=== PATIENT | female | born 1995 | race Hispanic/Latino ===

== ENCOUNTER 2016-11-03 14:20 | Emergency (ER) | payer MEDICAID ==
[2016-11-03 14:39] VITALS: BP 109/68; PULSE 65; RESP 17; TEMP 97.7; O2SAT 98
--- NOTE | 2016-11-03 15:45 | ED PDOC ---
HPI: Headache Time Seen by Provider: 11/03/16 14:54 Chief Complaint (Nursing): Headache Chief Complaint (Provider): Headache History Per: Patient History/Exam Limitations: no limitations Onset/Duration Of Symptoms: Days (x7) Current Symptoms Are (Timing): Still Present Additional Complaint(s): Adore Ball is a 21 year old female that presents to the ED with a chief complaint of headaches and generalized weakness that she has been experiencing for the past week. Patient states that when she moves, she feels as though there is more pressure on her headache in the front. Past Medical History Reviewed: Historical Data, Nursing Documentation, Vital Signs Vital Signs: Last Vital Signs Temp 97.7 F 11/03/16 14:34 Pulse 65 11/03/16 14:34 Resp 17 11/03/16 14:34 BP 109/68 11/03/16 14:34 Pulse Ox 98 11/03/16 14:34 - Family History Family History: States: Unknown Family Hx - Home Medications Home Medications: Ambulatory Orders Medication Instructions Recorded Guaifenesin [Mucinex] 600 mg PO BID PRN #10 tab.er.12h 02/03/16 Levofloxacin [Levaquin] 750 mg PO DAILY #10 tablet 02/03/16 Naproxen [Naprosyn] 500 mg PO BID PRN #14 tablet 02/03/16 oxyCODONE/Acetaminophen [Percocet 1 tab PO Q4 PRN #10 tab 02/03/16 5/325 mg Tab] Amoxicillin/Clavulanate [Augmentin 1 tab PO BID #20 tab 11/03/16 875 MG-125 MG] Guaifen/Phenyleph/Acetaminophn 1 tab PO BID #14 tab 11/03/16 [Mucinex Fast-Max Cold & Sinus 325 mg-200 mg-5] - Allergies Allergies/Adverse Reactions: Allergies Allergy/AdvReac Type Severity Reaction Status Date / Time No Known Allergies Allergy Verified 02/03/16 11:45 Review of Systems Constitutional: Positive for: Weakness (generalized) Neurological: Positive for: Headache Physical Exam - Reviewed Nursing Documentation Reviewed: Yes Vital Signs Reviewed: Yes - Physical Exam Appears: Positive for: Non-toxic, No Acute Distress Head Exam: Positive for: ATRAUMATIC, NORMOCEPHALIC Skin: Positive for: Normal Color, Warm ENT: Positive for: Other (mild tenderness with percussion of frontal sinuses) Cardiovascular/Chest: Positive for: Regular Rate, Rhythm. Negative for: Murmur Respiratory: Positive for: Normal Breath Sounds. Negative for: Wheezing Neurologic/Psych: Positive for: Alert, Oriented. Negative for: Motor/Sensory Deficits - ECG O2 Sat by Pulse Oximetry: 98 (RA) Pulse Ox Interpretation: Normal Medical Decision Making Medical Decision Making: Impression: Possible Sinus Infection Plan: * CT Head w/o contrast No acute intracranial abnormalities Scribe Attestation: Documented by Ladan Lopez, acting as a scribe for Marcy Levine PA-C. Provider Scribe Attestation: All medical record entries made by the Scribe were at my direction and personally dictated by me. I have reviewed the chart and agree that the record accurately reflects my personal performance of the history, physical exam, medical decision making, and the department course for this patient. I have also personally directed, reviewed, and agree with the discharge instructions and disposition. Disposition - Clinical Impression Clinical Impression: Sinus headache - Patient ED Disposition Is Patient to be Admitted: No Counseled Patient/Family Regarding: Diagnosis, Need For Followup, Rx Given - Disposition Referrals: [facility] [Outside] [facility] [Outside] Disposition: Routine/Home Disposition Time: 16:52 Condition: GOOD Prescriptions: Amoxicillin/Clavulanate [Augmentin 875 MG-125 MG] 1 tab PO BID #20 tab Guaifen/Phenyleph/Acetaminophn [Mucinex Fast-Max Cold & Sinus 325 mg-200 mg-5] 1 tab PO BID #14 tab Instructions: Sinusitis (ED)
--- NOTE | 2016-11-03 16:30 | CT ---
PROCEDURE: CT HEAD WITHOUT CONTRAST. HISTORY: headaches, worse with movement COMPARISON: None available. TECHNIQUE: Axial computed tomography images were obtained through the head/brain without intravenous contrast. Radiation dose: Total exam DLP = 835.45 mGy-cm. This CT exam was performed using one or more of the following dose reduction techniques: Automated exposure control, adjustment of the mA and/or kV according to patient size, and/or use of iterative reconstruction technique. FINDINGS: HEMORRHAGE: No intracranial hemorrhage. BRAIN: No mass effect or edema. No atrophy or chronic microvascular ischemic changes.Please note that MRI with diffusion imaging is more sensitive in the detection of acute ischemic event. VENTRICLES: No hydrocephalus. CALVARIUM: Unremarkable. PARANASAL SINUSES: Unremarkable as visualized. No significant inflammatory changes. MASTOID AIR CELLS: Unremarkable as visualized. No inflammatory changes. OTHER FINDINGS: None. IMPRESSION: No acute intracranial pathology identified.
== END 2016-11-03 16:59 | disposition home or self-care (01) ==
LOC: H.ER 14:20
DX: J01.90 Acute sinusitis, unspecified (principal)